=== PATIENT | female | born 1945 | race Caucasian/White ===

== ENCOUNTER 2017-08-01 18:38 | Observation (INO) ==
--- NOTE | 2017-08-01 18:55 | Emergency Department Note ---
Disposition Referrals: Franchesca Sinha, DIRECTOR OF SECURITIES AND REAL ESTATE [Primary Care Provider] - Forms: ED Satisfaction Letter Altered Mental Status HPI - General Chief Complaint: ED Altered Mental Status Stated Complaint: AMS Time Seen by Provider: 08/01/17 18:45 Source: patient Mode of arrival: EMS Limitations: no limitations Nursing Notes Reviewed: Yes Vital Signs Reviewed: Yes - History of Present Illness HPI Narrative: Home health nurse found the patient sitting on the couch and she felt cold and was little confused. Initially when asked what day it was she said Thursday she corrects herself Thursday. She knows the year and place and her name. She denies any complaints. Does not headache chest pain shortness of breath belly pain rashes diarrhea or other complaints. 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 Severity: none Consistency of Symptoms: waxing and waning Context: unknown Associated symptoms: Reports: denies other symptoms - Related Data Home Medications Medication Instructions Recorded Confirmed Folic Acid/Multivit-Min/Lutein 1 each PO QAM 08/01/17 08/01/17 [Adult Multivitamin Gummies] Lisinopril [Zestril] 5 mg PO DAILY 08/01/17 08/01/17 Loratadine [Claritin] 10 mg PO QAM 08/01/17 08/01/17 Metoprolol [Lopressor] 50 mg PO BID 08/01/17 08/01/17 Perphenazine [Trilafon] 2 mg PO QAM 08/01/17 08/01/17 Perphenazine [Trilafon] 8 mg PO HS 08/01/17 08/01/17 Ranitidine HCl [Acid Third Mate] 150 mg PO QAM 08/01/17 08/01/17 amLODIPine [Norvasc] 5 mg PO DAILY 08/01/17 08/01/17 Allergies Allergy/AdvReac Type Severity Reaction Status Date / Time nitrofurantoin Allergy Swelling Verified 03/27/17 10:29 [From Macrobid] of the Eye All systems ED: reviewed and negative except as stated. Review of Systems: As Per HPI Constitutional: Denies: fever, chills, weakness, weight change Eyes: Denies: eye pain, eye discharge, vision change ENT ED: Denies: ear pain, throat pain, dental pain, hearing loss, epistaxis, congestion, dysphagia Cardiovascular: Denies: chest pain, palpitations, dyspnea on exertion, edema, syncope Respiratory: Denies: cough, dyspnea, wheezes, hemoptysis, stridor Gastrointestinal: Denies: abdominal pain, nausea, vomiting, diarrhea, constipation, hematemesis, melena, hematochezia Genitourinary: Denies: dysuria, frequency, hematuria, discharge Musculoskeletal: Denies: back pain, neck pain, arthralgia, myalgia Integumentary: Denies: rash, abrasion, lesions Neurological: Reports: other (intermitent confusion). Denies: headache, weakness, numbness, paresthesias, confusion, abnormal gait, vertigo Psychiatric: Denies: anxiety, depression, suicidal thoughts, homicidal thoughts , auditory hallucinations, visual hallucinations Endocrine: Denies: fatigue Hematological/Lymphatic: Denies: easy bleeding, easy bruising Allergic/Immunologic: Denies: facial swelling, urticaria Past Medical History - Past Medical History Attestation: Yes The following information was validated with the patient. 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 history: Reports: no SKIVER WELT [employer] history, bilateral tubal ligation - Social History Smoking Status: Never smoker Smokeless Tobacco Status: No Alcohol use: Reports: none Drug use: Reports: none Physical Exam - General Limitations: no limitations General appearance: alert, in no apparent distress - Head Head exam: atraumatic, normocephalic, normal inspection - Eye Eye exam: Present: normal appearance, PERRL, EOMI - ENT ENT exam: normal exam, normal oropharynx, mucous membranes moist - Neck Neck exam: Present: normal inspection, full ROM, trachea midline - Chest Chest inspection: Present: normal inspection, symmetric chest wall rise - Respiratory Respiratory exam: Present: normal lung sounds bilaterally - Cardiovascular Cardiovascular exam: Present: regular rate, normal rhythm, normal heart sounds - Abdominal Exam Abdominal exam: Present: soft, Non-Tender. Absent: tenderness, distention, guarding, rebound, rigidity - Extremities Exam Extremities exam: Present: normal inspection - Back Exam Back exam: Present: normal inspection - Neurological Exam Neurological exam: Present: alert, oriented X3 (Alert and oriented 3 at the present time. But she has given wrong answers. She thought it was Thursday in the year was 2010), CN II-XII intact - Psychiatric Psychiatric exam: Present: normal affect, normal mood - Skin Skin exam: Present: warm, dry, intact Course Vital Signs Temperature 99 F 08/01/17 18:47 Pulse Rate 66 08/01/17 18:47 Respiratory Rate 18 08/01/17 18:47 Blood Pressure 150/84 08/01/17 18:47 O2 Sat by Pulse Oximetry 98 08/01/17 18:47 Temperature 99 F 08/01/17 18:47 Pulse Rate 66 08/01/17 18:47 Respiratory Rate 18 08/01/17 18:47 Blood Pressure 150/84 08/01/17 18:47 O2 Sat by Pulse Oximetry 98 08/01/17 18:47 Oxygen Delivery Oxygen Delivery Room Air Altered Mental Status - MDM Narrative Medical decision making narrative: Discussed with Dr. Crump who accepts admit - Lab Data Lab results reviewed: Yes I reviewed the patient's lab results. Result diagrams: 08/01/17 19:07 08/01/17 19:07 Lab Results 08/01/17 08/01/17 08/01/17 Range/Units 19:07 19:07 19:07 WBC 5.7 (4.3-11.1) K/mcL RBC 4.16 (3.82-4.97) M/mcL Hgb 12.4 (11.5-15.4) g/dL Hct 37.6 (35.3-44.9) % MCV 90.4 (83.0-100.0) fL MCH 29.8 (28.0-33.3) pg MCHC 33.0 (31.6-35.5) g/dL RDW 13.2 (11.5-14.5) % Plt Count 198 (140-400) K/mcL MPV 10.7 (9.4-12.4) fL Immature Gran % 0.4 (0-4) % Seg Neutrophils % 47.6 % Lymphocytes % 33.3 % Monocytes % 9.6 % Eosinophils % 8.2 % Basophils % 0.9 % Neutrophils # 2.7 (1.6-8.9) K/mcL Lymphocytes # 1.9 (0.6-4.6) K/mcL Monocytes # 0.6 (0.0-1.3) K/mcL Eosinophils # 0.5 (0.0-0.6) K/mcL Basophils # 0.1 (0.0-0.2) K/mcL Sodium 141 (136-145) mEq/L Potassium 4.7 H (3.5-4.5) mEq/L Chloride 109 (98-109) mEq/L Carbon Dioxide 24 (19-29) mEq/L BUN 26 H (7-20) mg/dL Creatinine 1.46 H (0.57-1.11) mg/dL Est GFR ( Amer) 43 L (> 60) Est GFR (Non-Af Amer) 35 L (> 60) BUN/Creatinine Ratio 18 (6-26) Glucose 106 H (70-99) mg/dL Calculated Osmolality 297 (280-300) Lactic Acid 1.2 (0.5-2.2) mmol/L Calcium 10.3 (8.6-10.8) mg/dL Total Bilirubin 0.2 (0.2-1.2) mg/dL AST 17 (5-34) Units/L ALT 16 (0-55) Units/L Alkaline Phosphatase 58 (38-126) Units/L Troponin I (0-0.03) ng/mL Serum Total Protein 6.4 (6.0-8.3) g/dL Albumin 3.5 (3.5-5.0) g/dL Globulin 2.9 (2.4-3.5) g/dL Albumin/Globulin Ratio 1.2 (1.1-2.2) Urine Color (Yellow) Urine Clarity (Clear) Urine pH (5.0-8.0) pH Units Ur Specific [place] (1.010-1.025) Urine Protein (Neg-Trace) mg/dL Urine Glucose (UA) (Normal) mg/dL Urine Ketones (Negative) mg/dL Urine Blood (Negative) Urine Nitrite (Negative) Urine Bilirubin (Negative) Urine Urobilinogen (Normal) mg/dL Ur Leukocyte Esterase (Negative) 08/01/17 08/01/17 Range/Units 19:07 19:35 WBC (4.3-11.1) K/mcL RBC (3.82-4.97) M/mcL Hgb (11.5-15.4) g/dL Hct (35.3-44.9) % MCV (83.0-100.0) fL MCH (28.0-33.3) pg MCHC (31.6-35.5) g/dL RDW (11.5-14.5) % Plt Count (140-400) K/mcL MPV (9.4-12.4) fL Immature Gran % (0-4) % Seg Neutrophils % % Lymphocytes % % Monocytes % % Eosinophils % % Basophils % % Neutrophils # (1.6-8.9) K/mcL Lymphocytes # (0.6-4.6) K/mcL Monocytes # (0.0-1.3) K/mcL Eosinophils # (0.0-0.6) K/mcL Basophils # (0.0-0.2) K/mcL Sodium (136-145) mEq/L Potassium (3.5-4.5) mEq/L Chloride (98-109) mEq/L Carbon Dioxide (19-29) mEq/L BUN (7-20) mg/dL Creatinine (0.57-1.11) mg/dL Est GFR ( Amer) (> 60) Est GFR (Non-Af Amer) (> 60) BUN/Creatinine Ratio (6-26) Glucose (70-99) mg/dL Calculated Osmolality (280-300) Lactic Acid (0.5-2.2) mmol/L Calcium (8.6-10.8) mg/dL Total Bilirubin (0.2-1.2) mg/dL AST (5-34) Units/L ALT (0-55) Units/L Alkaline Phosphatase (38-126) Units/L Troponin I 0.00 (0-0.03) ng/mL Serum Total Protein (6.0-8.3) g/dL Albumin (3.5-5.0) g/dL Globulin (2.4-3.5) g/dL Albumin/Globulin Ratio (1.1-2.2) Urine Color Light Yellow (Yellow) Urine Clarity Clear (Clear) Urine pH 6.0 (5.0-8.0) pH Units Ur Specific [place] 1.020 (1.010-1.025) Urine Protein Negative (Neg-Trace) mg/dL Urine Glucose (UA) Normal (Normal) mg/dL Urine Ketones Negative (Negative) mg/dL Urine Blood Negative (Negative) Urine Nitrite Negative (Negative) Urine Bilirubin Negative (Negative) Urine Urobilinogen Normal (Normal) mg/dL Ur Leukocyte Esterase Trace H (Negative) - Radiology Data Radiology results reviewed: Yes I reviewed the patient's radiology results. - EKG Data EKG attestation: Yes I reviewed and interpreted this EKG. EKG results narrative: EKG shows a sinus rhythm with left axis deviation and incomplete right bundle- branch pattern possible LVH rate is 71 bpm NM interval 167 ms QRS duration 105 ms R axis -[address] elevation or T changes noted TPA Checklist - LKW: 3-4.5 hrs Add. Warnings/Precautions Patient/family understanding: The patient/family members have been counseled and understood the risk, benefit , and alternatives of treatment.
[2017-08-01 19:26] LABS: Basophils # 0.1 K/mcL (0.0-0.2); Basophils % 0.9 %; Eosinophils # 0.5 K/mcL (0.0-0.6); Eosinophils % 8.2 %; Hematocrit 37.6 % (35.3-44.9); Hemoglobin 12.4 g/dL (11.5-15.4); Immature Granulocytes % 0.4 % (0-4); Lymphocytes # 1.9 K/mcL (0.6-4.6); Lymphocytes % 33.3 %; Mean Corpuscular Hemoglobin 29.8 pg (28.0-33.3); Mean Corpuscular Volume 90.4 fL (83.0-100.0); Mean Platelet Volume 10.7 fL (9.4-12.4); Monocytes # 0.6 K/mcL (0.0-1.3); Monocytes % 9.6 %; Neutrophils # 2.7 K/mcL (1.6-8.9); Platelet Count 198 K/mcL (140-400); Red Blood Count 4.16 M/mcL (3.82-4.97); Red Cell Distribution Width 13.2 % (11.5-14.5); Segmented Neutrophils % 47.6 %
[2017-08-01 19:42] LABS: Bilirubin,Urine Negative (Negative); Blood,Urine Negative (Negative); Clarity,Urine Clear (Clear); Glucose,Urine (UA) Normal (Normal); Ketones,Urine Negative (Negative); Leukocyte Esterase,Urine Trace (Negative); Nitrite,Urine Negative (Negative); Protein,Urine Negative (Neg-Trace); Urobilinogen,Urine Normal (Normal)
[2017-08-01 19:46] LABS: Albumin 3.5 g/dL (3.5-5.0); Albumin/Globulin Ratio 1.2 (1.1-2.2); Bilirubin,Total 0.2 mg/dL (0.2-1.2); Calcium 10.3 mg/dL (8.6-10.8); Globulin 2.9 g/dL (2.4-3.5); Potassium 4.7 mEq/L (3.5-4.5); Total Protein 6.4 g/dL (6.0-8.3)
[2017-08-01 19:52] LABS: Color,Urine Light Yellow (Yellow)
[2017-08-01 20:10] LABS: Bacteria,Urine Few per hpf (None-Few); Squamous Epithelial Cell,Urine Moderate per lpf (None-Few)
[2017-08-01 20:11] LABS: RBC,Urine 0-3 per hpf (0-3)
[2017-08-01] MEDS ORDERED: Acetaminophen 325 MG TABLET PO PRN (21:48)
[2017-08-01] MEDS ORDERED: 0.9 % Sodium Chloride 1,000 ML IVC SCH (21:48)
[2017-08-01] MEDS ORDERED: Naloxone 0.4 MG/ML INJ IVP PRN (21:48)
[2017-08-01] MEDS ORDERED: Perphenazine 2 MG TABLET PO SCH (21:48)
[2017-08-01] MEDS ORDERED: Ondansetron 4 MG/2 ML VIAL IVP PRN (21:48)
[2017-08-01] MEDS ORDERED: Ibuprofen 400 MG TABLET PO PRN (21:48)
[2017-08-02 06:29] LABS: Basophils # 0.1 K/mcL (0.0-0.2); Basophils % 0.9 %; Eosinophils # 0.5 K/mcL (0.0-0.6); Eosinophils % 9.1 %; Hematocrit 36.3 % (35.3-44.9); Hemoglobin 12.3 g/dL (11.5-15.4); Immature Granulocytes % 0.3 % (0-4); Lymphocytes # 1.7 K/mcL (0.6-4.6); Lymphocytes % 29.3 %; Mean Corpuscular HGB Conc 33.9 g/dL (31.6-35.5); Mean Corpuscular Hemoglobin 30.1 pg (28.0-33.3); Mean Platelet Volume 10.8 fL (9.4-12.4); Monocytes # 0.6 K/mcL (0.0-1.3); Monocytes % 9.8 %; Neutrophils # 2.9 K/mcL (1.6-8.9); Platelet Count 181 K/mcL (140-400); Red Blood Count 4.08 M/mcL (3.82-4.97); Red Cell Distribution Width 13.2 % (11.5-14.5); Segmented Neutrophils % 50.6 %
[2017-08-02 06:36] LABS: Prothrombin Time 10.9 Seconds (9.4-12.1)
[2017-08-02 06:38] LABS: Activated Partial Thrombo Time 29.1 Seconds (26.0-36.0)
[2017-08-02 07:07] LABS: Calcium 9.9 mg/dL (8.6-10.8); Potassium 4.3 mEq/L (3.5-4.5)
[2017-08-02] MEDS ORDERED: Perphenazine 2 MG TABLET PO SCH (09:00)
[2017-08-02] MEDS ORDERED: Famotidine 20 MG TABLET PO SCH (09:00)
[2017-08-02] MEDS ORDERED: Multivit/Ca/Min/Fe/FA 1 TAB TABLET PO SCH (09:00)
[2017-08-02] MEDS ORDERED: amLODIPine 5 MG TABLET PO SCH (09:00)
[2017-08-02] MEDS ORDERED: Loratadine 10 MG TABLET PO SCH (09:00)
--- NOTE | 2017-08-02 10:56 | Internal Med History&Physical ---
Date of Encounter: 08/02/17 Time of Encounter: 10:30 Assessment and Plan (1) Confusion Current visit: Yes Status: Acute Now resolved. Etiology not obvious. Head CT and lab work has been unremarkable. (2) CKD (chronic kidney disease) stage 3, GFR 30-59 ml/min Current visit: Yes Status: Chronic Stable. Creatinine today is 1.35 compared to 1.33 on 05/09/2015. (3) Psychosis Current visit: No Status: Chronic As per [facility] [place] [facility] Qualifiers: Psychosis type: unspecified psychosis type Qualified Code(s): F29 - Unspecified psychosis not due to a substance or known physiological condition Internal Medicine - H&P: HPI Chief complaint: Altered mental status Admitted From: Emergency Dept Plans for Post Hospital Care: Home History of present illness: Ms. Cullen is a 71 year old female who was sent to emergency room after her home health nurse reported the patient seemed confused at a home visit. There was no complaints by the patient. She specifically denied chest pain or dyspnea in emergency room. She was evaluated in emergency room and admitted to [facility] floor for observation and ongoing care needs. She states she feels back to her baseline now and wishes to be discharged home. She states she has occasional feelings of confusion. She has a diagnosis of depression and follows at mental health clinic on a regular basis. She denies other psychiatric disorders. Past Med Surg Social Fam HX - Past Medical History Medical history: asthma, GERD, hyperlipidemia, hypertension Psychiatric history: anxiety, previous psychiatric hospitalization - Past Surgical History Surgical History: cholecystectomy - Social History Smoking Status: Never smoker Smokeless Tobacco Status: No Alcohol use: none Drug use: none Internal Medicine - H&P: Meds Folic Acid/Multivit-Min/Lutein [Adult Multivitamin Gummies] 1 each PO QAM [History] Lisinopril [Zestril] 5 mg PO DAILY 08/01/17 [History] Loratadine [Claritin] 10 mg PO QAM 08/01/17 [History] Metoprolol [Lopressor] 50 mg PO BID 08/01/17 [History] Perphenazine [Trilafon] 2 mg PO QAM 08/01/17 [History] Perphenazine [Trilafon] 8 mg PO HS 08/01/17 [History] Ranitidine HCl [Acid Larriman Helper] 150 mg PO QAM 08/01/17 [History] amLODIPine [Norvasc] 5 mg PO DAILY 08/01/17 [History] 3 Allergy/AdvReac Type Severity Reaction Status Date / Time nitrofurantoin Allergy Swelling Verified 03/27/17 10:29 [From Macrobid] of the Eye All Systems PM: A 10-system review of systems was performed and is negative for pertinent findings except as documented above in the HPI. Review of systems: Gen.: She states her weight is been stable past few months Cardiovascular: She has history of hypertension but denies MD heart failure angina DVT or pulmonary embolus Respiratory: She smoked for approximately 25 years from her 30s to 50s. She smoked up to 2 packs per day. She denies chronic lung disease. GI: She has occasional GERD symptoms but denies disorders of her liver gallbladder or exocrine pancreas : She has chronic kidney disease stage III. She denies other kidney or bladder disorders. Neurologic: Mental status: She denies large distribution strokes or seizures. Endocrine: She denies diabetes thyroid disease or hyperlipidemia Hematology/oncology: She denies blood disorders cancers or anemia Psychiatric: As per history of present illness [place] skeletal: She has DJD and gout. - Constitutional Vitals: Temp Pulse Resp BP Pulse Ox 97.7 F 59 18 132/64 96 08/02/17 06:44 08/02/17 06:44 08/02/17 06:44 08/02/17 06:44 08/02/17 06:44 Exam: Gen.: She is a well-developed well-nourished female who appears in no acute distress at present time HEENT: Head is atraumatic and normocephalic. Eyes: EOMI. There is no scleral icterus. Mouth: Mucosa is moist. Neck: Supple and nontender. There is no thyromegaly or adenopathy noted. Heart: Regular without murmurs gallops or ectopics Lungs: No wheezes or crackles are heard. Abdomen: Soft and nontender. No masses or guarding are noted. Extremities: There is no cyanosis edema or clubbing noted. Dorsalis pedis and posttibial pulses are 1-2 over 2 bilaterally. Neurologic: Mental status: She is talkative and a good historian. She has psychotic behavior manifested as talking to people not in the room when I was washing my hands. Cranial nerves: Smile is symmetric. Forehead wrinkles bilaterally. Tongue protrudes midline. EOMI. Motor: There is no pronator drift. Cerebellar: Finger to nose is intact bilaterally. Skin: Warm and dry Internal Med - H&P Results - Labs CBC & Chem 7: 08/02/17 05:25 08/02/17 05:25 Labs: Short CBC 08/02/17 Range/Units 05:25 WBC 5.7 (4.3-11.1) K/mcL Hgb 12.3 (11.5-15.4) g/dL Hct 36.3 (35.3-44.9) % Plt Count 181 (140-400) K/mcL Neutrophils # 2.9 (1.6-8.9) K/mcL BMP 08/02/17 05:25 Sodium 140 Potassium 4.3 Chloride 111 H Carbon Dioxide 22 BUN 23 H Creatinine 1.35 H Glucose 92 Calcium 9.9
--- NOTE | 2017-08-02 11:09 | Discharge Summary ---
Date of Encounter: 08/02/17 Time of Encounter: 10:30 - Discharge Diagnosis (1) Confusion Priority: Primary Status: Acute (2) CKD (chronic kidney disease) stage 3, GFR 30-59 ml/min Priority: Secondary Status: Chronic (3) Psychosis Priority: Secondary Status: Chronic Qualifiers: Psychosis type: unspecified psychosis type Qualified Code(s): F29 - Unspecified psychosis not due to a substance or known physiological condition - Discharge Medications Home Medications: Folic Acid/Multivit-Min/Lutein [Adult Multivitamin Gummies] 1 each PO QAM [History] Lisinopril [Zestril] 5 mg PO DAILY 08/01/17 [History] Loratadine [Claritin] 10 mg PO QAM 08/01/17 [History] Metoprolol [Lopressor] 50 mg PO BID 08/01/17 [History] Perphenazine [Trilafon] 2 mg PO QAM 08/01/17 [History] Perphenazine [Trilafon] 8 mg PO HS 08/01/17 [History] Ranitidine HCl [Acid Costume Specialist] 150 mg PO QAM 08/01/17 [History] amLODIPine [Norvasc] 5 mg PO DAILY 08/01/17 [History] Allergies/Adverse Reactions: 3 Allergy/AdvReac Type Severity Reaction Status Date / Time nitrofurantoin Allergy Swelling Verified 03/27/17 10:29 [From Macrobid] of the Eye Date of admission: 08/01/17 20:47 Primary care physician: Franchesca Sinha CNP - Patient Status Disposition: Home, Self-Care Functional capacity at discharge: independent ambulation Overall status at discharge: patient is progressing back to baseline - Discharge Instructions Follow Up With: Franchesca Sinha CNP [Primary Care Provider] - 1 week - Diet and Activity Activity: resume usual activities as tolerated Diet: advance to your usual diet Hospital course: Ms. Cullen is a 71 year old female who was sent to emergency room after her home health nurse reported the patient seemed confused at a home visit. There was no complaints by the patient. She specifically denied chest pain or dyspnea in emergency room. She was evaluated in emergency room and admitted to [facility] for observation and ongoing care needs. Initial orders were written by the emergency room physician. I saw her on August 02 and performed the history physical and discharge. When I saw her she did not appear to be confused and was appropriate in conversation. She does show psychotic behavior manifested by talking to people who were not in the room. I have noted similar behavior before when I have seen her at the senior living where she visits her boyfriend. She follows at mental health clinic. She felt stable for discharge home which I felt was reasonable. She will follow with her PCP Franchesca Sinha CNP within 1 week and at mental health clinic as directed. Orthostatic vital signs will be checked prior to discharge since she complained of occasional lightheadedness on arising from a seated position. - Time Spent with Patient Total time spent providing and/or coordinating discharge services: - Constitutional Vitals: Temp Pulse Resp BP Pulse Ox 97.7 F 59 18 132/64 96 08/02/17 06:44 08/02/17 06:44 08/02/17 06:44 08/02/17 06:44 08/02/17 06:44
[2017-08-02 11:23] VITALS: BP 127/56
--- NOTE | 2017-08-03 15:03 | Electrocardiograph Report ---
[address] [place], [place] [address] Test Date: 2017-08-01 Pat Name: Rosanna Cullen Department: [id number] Room: 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
== END 2017-08-02 12:28 | disposition home or self-care (01) ==
LOC: INPPIK 18:38 → EMEROOPIK 18:38 → INPPIK 21:35
PROVIDERS: ADMIT Internal Medicine; ATTEND Internal Medicine

== ENCOUNTER 2019-11-21 07:42 | Inpatient (IN) ==
[2019-11-21 08:02] LABS: Bilirubin,Urine Negative (Negative); Blood,Urine Trace-intact (Negative); Clarity,Urine Clear (Clear); Color,Urine Yellow (Yellow); Glucose,Urine (UA) Normal (Normal); Ketones,Urine Negative (Negative); Leukocyte Esterase,Urine Negative (Negative); Nitrite,Urine Negative (Negative); Protein,Urine Negative (Neg-Trace); Specific Gravity,Urine >= 1.030 (1.010-1.025); Urobilinogen,Urine Normal (Normal)
[2019-11-21 08:11] LABS: Bacteria,Urine Few per hpf (None-Few); RBC,Urine 0-3 per hpf (0-3); Squamous Epithelial Cell,Urine Few per lpf (None-Few); WBC,Urine 0-3 per hpf (0-3)
[2019-11-21 08:12] LABS: Mucus,Urine Few per lpf (Few)
[2019-11-21 08:23] LABS: Basophils % 0.4 %; Eosinophils % 0.4 %; Hematocrit 34.4 % (35.3-44.9); Hemoglobin 11.7 g/dL (11.5-15.4); Immature Granulocytes % 0.3 % (0-4); Lymphocytes # 0.8 K/mcL (0.6-4.6); Lymphocytes % 7.4 %; Mean Corpuscular Hemoglobin 31.1 pg (28.0-33.3); Mean Corpuscular Volume 91.5 fL (83.0-100.0); Mean Platelet Volume 10.9 fL (9.4-12.4); Monocytes # 0.9 K/mcL (0.0-1.3); Monocytes % 7.6 %; Neutrophils # 9.4 K/mcL (1.6-8.9); Platelet Count 188 K/mcL (140-400); Red Blood Count 3.76 M/mcL (3.82-4.97); Red Cell Distribution Width 12.8 % (11.5-14.5); Segmented Neutrophils % 83.9 %; White Blood Count 11.2 K/mcL (4.3-11.1)
[2019-11-21 08:37] LABS: Calcium 11.1 mg/dL (8.6-10.3); Potassium 4.8 mEq/L (3.5-5.1)
[2019-11-21] MEDS ORDERED: 0.9 % Sodium Chloride 500 ML IVC ONE (09:35)
[2019-11-21] MEDS ORDERED: Naloxone 0.4 MG/ML INJ IVP PRN (10:46)
[2019-11-21] MEDS ORDERED: Ondansetron 4 MG/2 ML VIAL IVP PRN (11:00)
[2019-11-21] MEDS ORDERED: Mag Hydrox/Al Hydrox/Simeth 30 ML UDC PO PRN (11:00)
[2019-11-21] MEDS ORDERED: MOM Conc 10 ML UD.LIQ PO PRN (11:00)
[2019-11-21] MEDS: 0.9 % Sodium Chloride 1,000 ML IVC SCH ×2 (11:54→23:18)
[2019-11-21 12:32] LABS: Hematocrit 35.3 % (35.3-44.9); Hemoglobin 11.6 g/dL (11.5-15.4); Mean Corpuscular HGB Conc 32.9 g/dL (31.6-35.5); Mean Corpuscular Hemoglobin 30.4 pg (28.0-33.3); Mean Corpuscular Volume 92.7 fL (83.0-100.0); Mean Platelet Volume 10.5 fL (9.4-12.4); Platelet Count 194 K/mcL (140-400); Red Blood Count 3.81 M/mcL (3.82-4.97); Red Cell Distribution Width 12.8 % (11.5-14.5); White Blood Count 11.2 K/mcL (4.3-11.1)
[2019-11-21] MEDS: Aspirin Enteric Coated 81 MG Tablet PO SCH (20:24)
[2019-11-21] MEDS: *HR* Heparin 5,000 UNIT/ML VIAL SQ SCH (20:36)
[2019-11-21] MEDS: Perphenazine 2 MG TABLET PO SCH (20:36)
[2019-11-22 05:47] LABS: Troponin I < 0.03 ng/mL (< 0.04)
[2019-11-22 06:04] LABS: Alanine Aminotransferase 11 Units/L (7-52); Albumin 3.4 g/dL (3.5-5.7); Albumin/Globulin Ratio 1.7 (1.1-2.2); Alkaline Phosphatase 56 Units/L (34-104); Aspartate Amino Transferase 21 Units/L (13-39); BUN/Creatinine Ratio 12 (6-26); Bilirubin,Total 0.5 mg/dL (0.3-1.0); Blood Urea Nitrogen 23 mg/dL (8-23); Calcium 9.8 mg/dL (8.6-10.3); Carbon Dioxide 20 mEq/L (23-29); Chloride 111 mEq/L (98-107); Chol/HDL Ratio 3.3 (0-4.9); Cholesterol 121 mg/dL (< 200); Glucose 83 mg/dL (70-105); HDL Cholesterol 37 mg/dL (40-59); LDL Cholesterol,Calculated 70 mg/dL (0-99); Osmolality,Calculated 287 (280-300); Potassium 4.3 mEq/L (3.5-5.1); Sodium 137 mEq/L (136-145); Total Protein 5.4 g/dL (6.4-8.9); Triglycerides 70 mg/dL (< 150); eGFR For African Americans 31 (> 60); eGFR For Non-African Americans 26 (> 60)
[2019-11-22 06:05] LABS: Calcium 9.7 mg/dL (8.6-10.3); Potassium 4.3 mEq/L (3.5-5.1)
[2019-11-22] MEDS: *HR* Heparin 5,000 UNIT/ML VIAL SQ SCH ×3 (06:29→20:19)
[2019-11-22] MEDS: 0.9 % Sodium Chloride 1,000 ML IVC SCH ×3 (06:30→20:03)
[2019-11-22] MEDS: Perphenazine 2 MG TABLET PO SCH ×2 (09:46→20:02)
[2019-11-22] MEDS: Loratadine 10 MG TABLET PO SCH (09:46)
[2019-11-22] MEDS: Aspirin Enteric Coated 81 MG Tablet PO SCH (09:46)
[2019-11-22] MEDS: amLODIPine 5 MG TABLET PO SCH (09:47)
[2019-11-22] MEDS: Multivit/Ca/Min/Fe/FA 1 TAB TABLET PO SCH (09:47)
[2019-11-22] MEDS: Cholecalciferol (D-3) 1,000 UNIT (25MCG) TABLET PO SCH (09:47)
[2019-11-22 10:12] LABS: Estimated Average Glucose 111 mg/dl
[2019-11-22 12:59] LABS: Hematocrit 30.1 % (35.3-44.9); Hemoglobin 9.9 g/dL (11.5-15.4); Mean Corpuscular HGB Conc 32.9 g/dL (31.6-35.5); Mean Corpuscular Volume 94.4 fL (83.0-100.0); Platelet Count 170 K/mcL (140-400); Red Blood Count 3.19 M/mcL (3.82-4.97); Red Cell Distribution Width 13.1 % (11.5-14.5); White Blood Count 5.9 K/mcL (4.3-11.1)
[2019-11-23] MEDS: 0.9 % Sodium Chloride 1,000 ML IVC SCH ×2 (04:17→13:08)
[2019-11-23] MEDS: *HR* Heparin 5,000 UNIT/ML VIAL SQ SCH ×2 (04:17→13:31)
[2019-11-23 07:37] LABS: Calcium 9.3 mg/dL (8.6-10.3); Potassium 4.3 mEq/L (3.5-5.1)
[2019-11-23 07:39] LABS: Hematocrit 30.6 % (35.3-44.9); Mean Corpuscular HGB Conc 32.7 g/dL (31.6-35.5); Mean Corpuscular Hemoglobin 30.4 pg (28.0-33.3); Mean Platelet Volume 11.2 fL (9.4-12.4); Platelet Count 172 K/mcL (140-400); Red Blood Count 3.29 M/mcL (3.82-4.97); Red Cell Distribution Width 12.7 % (11.5-14.5); White Blood Count 5.7 K/mcL (4.3-11.1)
[2019-11-23] MEDS: Multivit/Ca/Min/Fe/FA 1 TAB TABLET PO SCH (08:08)
[2019-11-23] MEDS: Perphenazine 2 MG TABLET PO SCH (08:08)
[2019-11-23] MEDS: amLODIPine 5 MG TABLET PO SCH (08:09)
[2019-11-23] MEDS: Aspirin Enteric Coated 81 MG Tablet PO SCH (08:09)
[2019-11-23] MEDS: Cholecalciferol (D-3) 1,000 UNIT (25MCG) TABLET PO SCH (08:09)
[2019-11-23] MEDS: Loratadine 10 MG TABLET PO SCH (08:09)
[2019-11-23 16:16] VITALS: BP 148/74
== END 2019-11-23 19:13 ==
LOC: INPPIK 07:42 → EMEROOPIK 07:42 → INPPIK 10:30
PROVIDERS: ADMIT Family Medicine; ATTEND Family Medicine